=== PATIENT | male | born 1975 | race Caucasian/White ===

== ENCOUNTER 2018-07-04 08:15 | Inpatient (IN) | payer OTHER ==
[~2018-07-04] VITALS: Ht 170.2 cm; Wt 88.4 kg
--- NOTE | 2018-07-04 09:06 | NUR ---
[facility]
[2018-07-04] MEDS ORDERED: ONDANSETRON 2MG/ML, 2ML IVPush ONE (10:00)
[2018-07-04] MEDS ORDERED: SODIUM CHLORIDE FLUSH 10ML SYR IVF ONE (10:00)
[2018-07-04] MEDS ORDERED: SODIUM CHLORIDE 0.9% 1,000ML IVBOLUS ONE (10:00)
[2018-07-04] MEDS ORDERED: ONDANSETRON 2MG/ML, 2ML ONE (10:23)
[2018-07-04 10:34] LABS: BASOPHILS # (AUTO) 0.03 x10^3/uL (0-0.1); BASOPHILS % (AUTO) 0 % (0-1); EOSINOPHILS # (AUTO) 0.07 x10^3/uL (0-0.4); EOSINOPHILS % (AUTO) 1 % (1-7); LYMPHOCYTES # (AUTO) 1.63 x10^3/uL (1-3.4); LYMPHOCYTES % (AUTO) 18 % (22-44); MD NO; MEAN CORPUSCULAR HEMOGLOBIN 29.1 pg (27.5-34.5); MEAN CORPUSCULAR HGB CONC 33.5 g/dL (33.2-36.2); MEAN PLATELET VOLUME 9.7 fL (7.4-10.4); MONOCYTES % (AUTO) 10 % (2-9); NEUTROPHILS # (AUTO) 6.31 x10^3/uL (1.8-6.8); NEUTROPHILS % (AUTO) 71 % (42-75); PLATELET COUNT 341 x10^3/uL (130-400); RED BLOOD COUNT 6.22 x10^6/uL (4.38-5.82); RED CELL DISTRIBUTION WIDTH 13.1 % (9.4-14.8)
[2018-07-04 10:42] LABS: ALANINE AMINOTRANSFERASE 17 U/L (12-78); ALBUMIN 3.3 g/dL (3.4-5.0); ANION GAP 20 mmol/L (5-15); CALCIUM 9.6 mg/dL (8.5-10.1); CHLORIDE 87 mmol/L (98-107)
[2018-07-04 10:44] LABS: ALKALINE PHOSPHATASE 161 U/L (45-117); BILIRUBIN,TOTAL 1.1 mg/dL (0.2-1.0); TOTAL PROTEIN 7.7 g/dL (6.4-8.2)
[2018-07-04 10:54] LABS: INTERNATIONAL NORMALIZED RATIO 1.04 (0.93-1.1); PROTHROMBIN TIME 10.9 Seconds (9.6-11.5)
[2018-07-04] MEDS ORDERED: PANTOPRAZOLE 40 MG IV IVPush STA (12:03)
[2018-07-04] MEDS ORDERED: FAMOTIDINE 20 MG/2 ML IVPush ONE (12:30)
[2018-07-04] MEDS ORDERED: PANTOPRAZOLE 40 MG IV ONE (12:42)
[2018-07-04] MEDS ORDERED: FAMOTIDINE 20 MG/2 ML ONE (12:42)
--- NOTE | 2018-07-04 12:57 | NUR ---
LUNCH RN: PT MEDICATED PER JUL. FAMILY AT BEDSIDE. PT HICCUPING, STATES PAINFUL. TACHY HR AT THIS TIME. CALL LIGHT WITHIN REACH. AWAITING ROOM ON FLOOR
[2018-07-04] MEDS: NICOTINE 7 MG/24 HR PATCH.TD24 TD SCH (13:30)
[2018-07-04] MEDS ORDERED: PROMETHAZINE 25 MG/ML, 1ML IM PRN (13:30)
[2018-07-04] MEDS ORDERED: MAALOX/HYOSCYAMINE/LIDOCAINE 45 ML BTL PO ONE (13:30)
[2018-07-04] MEDS ORDERED: ONDANSETRON ODT 4 MG PO PRN (13:30)
[2018-07-04] MEDS ORDERED: ACETAMINOPHEN 325 MG TABLET PO PRN (13:30)
[2018-07-04] MEDS ORDERED: ONDANSETRON 2MG/ML, 2ML IVPush PRN (13:30)
--- NOTE | 2018-07-04 13:34 | NUR ---
GI MD AT BEDSIDE
--- NOTE | 2018-07-04 13:59 | NUR ---
sbar to carlos mitchell via telephone
[2018-07-04] MEDS ORDERED: PROPOFOL 10 MG/ML, 20ML IVPush ONE (14:00)
[2018-07-04] MEDS ORDERED: PROPOFOL 10 MG/ML, 20ML ONE (14:24)
[2018-07-04] MEDS ORDERED: KETAMINE 10 MG/ML, 20ML ONE (14:34)
[2018-07-04 15:04] LABS: HEMOGLOBIN A1C 10.6 % (4.2-6.3)
--- NOTE | 2018-07-04 15:06 | NUR ---
ENDOSCOPY DONE IN ED RM 1, SEE PAPER CHARTING FROM YOANNA MORALES
[2018-07-04] MEDS ORDERED: EPINEPHRINE SYRINGE 0.1 MG/ML, 10ML ONE (15:16)
--- NOTE | 2018-07-04 15:25 | NUR ---
RECOVERY COMPLETE PER YOANNA RN. RTG
--- NOTE | 2018-07-04 15:38 | NUR ---
PT A&O X4, VSS, ACCOMPANIED BY
[2018-07-04] MEDS: INSULIN LISPRO 100 UNITS/ML, PEN SQ-INSULIN SCH ×2 (16:00→20:46)
[2018-07-04 16:18] VITALS: BP 116/81
[2018-07-04] MEDS: SODIUM CHLORIDE 0.9% 1,000 ML IV SCH ×2 (16:41→23:30)
[2018-07-04] MEDS: SUCRALFATE 1 GM/10 ML UDC PO SCH (16:41)
[2018-07-04] MEDS: PANTOPRAZOLE 80 MG in SODIUM CHLORIDE 0.9% 100 ML IV SCH (16:41)
[2018-07-04 19:55] VITALS: BP 112/76
[2018-07-05 01:15] VITALS: BP 116/75
[2018-07-05] MEDS: PANTOPRAZOLE 80 MG in SODIUM CHLORIDE 0.9% 100 ML IV SCH ×3 (01:33→23:37)
[2018-07-05 07:12] VITALS: BP 116/80
[2018-07-05 08:25] LABS: CHOL/HDL RATIO 4.7
[2018-07-05] MEDS: SUCRALFATE 1 GM/10 ML UDC PO SCH ×3 (08:56→16:35)
[2018-07-05] MEDS: SODIUM CHLORIDE 0.9% 1,000 ML IV SCH (09:23)
[2018-07-05 09:35] LABS: ALANINE AMINOTRANSFERASE 16 U/L (12-78); ALBUMIN 2.9 g/dL (3.4-5.0); ANION GAP 9 mmol/L (5-15); CALCIUM 8.3 mg/dL (8.5-10.1); CHLORIDE 100 mmol/L (98-107); CREATININE 1.13 mg/dL (0.7-1.3)
[2018-07-05 09:37] LABS: ALKALINE PHOSPHATASE 128 U/L (45-117); BILIRUBIN,TOTAL 0.6 mg/dL (0.2-1.0); TOTAL PROTEIN 6.7 g/dL (6.4-8.2)
[2018-07-05 10:10] LABS: BASOPHILS # (AUTO) 0.04 x10^3/uL (0-0.1); BASOPHILS % (AUTO) 1 % (0-1); EOSINOPHILS # (AUTO) 0.09 x10^3/uL (0-0.4); EOSINOPHILS % (AUTO) 1 % (1-7); LYMPHOCYTES # (AUTO) 1.76 x10^3/uL (1-3.4); LYMPHOCYTES % (AUTO) 21 % (22-44); MD NO; MEAN CORPUSCULAR HEMOGLOBIN 29.8 pg (27.5-34.5); MEAN CORPUSCULAR VOLUME 87.6 fL (81-97); MEAN PLATELET VOLUME 8.6 fL (7.4-10.4); MONOCYTES % (AUTO) 8 % (2-9); NEUTROPHILS # (AUTO) 5.82 x10^3/uL (1.8-6.8); NEUTROPHILS % (AUTO) 69 % (42-75); PLATELET COUNT 305 x10^3/uL (130-400); RED BLOOD COUNT 5.36 x10^6/uL (4.38-5.82); RED CELL DISTRIBUTION WIDTH 13.3 % (9.4-14.8)
[2018-07-05 10:11] LABS: HEMOGRAM NOTE RECHECKED
[2018-07-05] MEDS: INSULIN LISPRO 100 UNITS/ML, PEN SQ-INSULIN SCH ×4 (10:53→20:09)
[2018-07-05] MEDS: INSULIN GLARGINE 100 UNITS/ML, PEN SQ-INSULIN SCH ×2 (12:56→20:10)
[2018-07-05 13:29] VITALS: BP 114/78
[2018-07-05] MEDS: NICOTINE 7 MG/24 HR PATCH.TD24 TD SCH (13:30)
[2018-07-05] MEDS: POTASSIUM CHLORIDE 20 MEQ TAB.ER.PRT PO SCH (16:35)
[2018-07-05 19:44] VITALS: BP 114/81
[2018-07-06 01:12] VITALS: BP 105/76
[2018-07-06 06:04] LABS: CHLORIDE 103 mmol/L (98-107)
[2018-07-06 06:05] LABS: BASOPHILS # (AUTO) 0.03 x10^3/uL (0-0.1); BASOPHILS % (AUTO) 1 % (0-1); EOSINOPHILS # (AUTO) 0.22 x10^3/uL (0-0.4); EOSINOPHILS % (AUTO) 4 % (1-7); LYMPHOCYTES # (AUTO) 2.27 x10^3/uL (1-3.4); LYMPHOCYTES % (AUTO) 36 % (22-44); MD NO; MEAN CORPUSCULAR HEMOGLOBIN 30.5 pg (27.5-34.5); MEAN CORPUSCULAR HGB CONC 34.7 g/dL (33.2-36.2); MEAN CORPUSCULAR VOLUME 87.8 fL (81-97); MONOCYTES # (AUTO) 0.59 x10^3/uL (0.2-0.8); MONOCYTES % (AUTO) 10 % (2-9); NEUTROPHILS # (AUTO) 3.12 x10^3/uL (1.8-6.8); NEUTROPHILS % (AUTO) 50 % (42-75); PLATELET COUNT 261 x10^3/uL (130-400); RED BLOOD COUNT 5.01 x10^6/uL (4.38-5.82); RED CELL DISTRIBUTION WIDTH 13.1 % (9.4-14.8)
[2018-07-06 06:10] LABS: ANION GAP 4 mmol/L (5-15); CALCIUM 8.3 mg/dL (8.5-10.1); CREATININE 1.15 mg/dL (0.7-1.3)
[2018-07-06 07:39] VITALS: BP 106/71
[2018-07-06] MEDS: SUCRALFATE 1 GM/10 ML UDC PO SCH ×2 (07:55→11:00)
[2018-07-06] MEDS: INSULIN LISPRO 100 UNITS/ML, PEN SQ-INSULIN SCH ×2 (07:56→11:00)
[2018-07-06] MEDS: POTASSIUM CHLORIDE 20 MEQ TAB.ER.PRT PO SCH (08:00)
[2018-07-06] MEDS ORDERED: metFORMIN 850 MG TABLET PO SCH (08:00)
[2018-07-06] MEDS: INSULIN GLARGINE 100 UNITS/ML, PEN SQ-INSULIN SCH (09:00)
[2018-07-06] MEDS: PANTOPRAZOLE 80 MG in SODIUM CHLORIDE 0.9% 100 ML IV SCH (09:30)
[2018-07-06] MEDS: NICOTINE 7 MG/24 HR PATCH.TD24 TD SCH (13:30)
[2018-07-06] MEDS ORDERED: CLAR500T PO (14:36)
[2018-07-06] MEDS ORDERED: AMOX-291 PO (14:36)
[2018-07-06] MEDS ORDERED: OMEP-110 PO (14:36)
[2018-07-06] MEDS ORDERED: SUCR1ORA5 PO (14:36)
[2018-07-06] MEDS ORDERED: INSU100I13 SQ-INSULIN (14:36)
[2018-07-06] MEDS ORDERED: ATOR20TA37 PO (14:36)
[2018-07-06] MEDS ORDERED: METF850T PO (14:36)
[2018-07-06] MEDS ORDERED: ATORVASTATIN 20 MG TABLET PO SCH (21:00)
[2018-07-06] MEDS ORDERED: AMOXICILLIN 500 MG CAPSULE PO SCH (21:00)
[2018-07-06] MEDS ORDERED: CLARITHROMYCIN 500 MG TABLET PO SCH (21:00)
== END 2018-07-06 16:30 | disposition home or self-care (01) | DRG 377 ==
LOC: ED 09:34 → EDIP 12:09 → 4WST 15:55 → DCLOUNGE 07-06 16:15
PROVIDERS: ADMIT Internal Medicine; ATTEND Internal Medicine
PROC: 0DJ08ZZ Inspection of Upper Intestinal Tract, Via Natural or Artificial Opening Endoscopic (ICD-10-PCS; 2018-07-04)
PROC: 3E0G8GC Introduction of Other Therapeutic Substance into Upper GI, Via Natural or Artificial Opening Endoscopic (ICD-10-PCS; principal; 2018-07-04 14:20)
DX: K26.4 Chronic or unspecified duodenal ulcer with hemorrhage (principal); N17.0 Acute kidney failure with tubular necrosis; E87.1 Hypo-osmolality and hyponatremia; B96.81 Helicobacter pylori [H. pylori] as the cause of diseases classified elsewhere; E11.65 Type 2 diabetes mellitus with hyperglycemia; E78.5 Hyperlipidemia, unspecified; E87.6 Hypokalemia; F14.10 Cocaine abuse, uncomplicated; F41.1 Generalized anxiety disorder; I10 Essential (primary) hypertension; K20.9 Esophagitis, unspecified; K59.00 Constipation, unspecified; Z72.0 Tobacco use; Z91.14 Patient's other noncompliance with medication regimen
CPT/HCPCS: 36415; 99285; J3490; 76700; 80048; 80053; 80061; 82962; 83036; 83605; 83690; 85014; 85018; 85025; 85610; 86677; 96361; 96374; 96375; G0378; J2405; C9113; J1815; J7030